=== PATIENT | female | born 1965 | race African-American/Black ===

== ENCOUNTER 2023-01-18 04:38 | Inpatient (IN) | payer BC ==
[2023-01-18 05:45] VITALS: BMI 39.7
[2023-01-18] MEDS ORDERED: Ondansetron ODT 4 MG TAB PO PRN (07:20)
[2023-01-18] MEDS ORDERED: Morphine 2 MG/ML VIAL SLOW IVP PRN ×2 (07:26→07:28)
[2023-01-18] MEDS ORDERED: HumaLOG 300 UNITS/3 ML VIAL SC PRN ×2 (07:26)
[2023-01-18] MEDS ORDERED: Dextrose 50% Abboject 50 ML SYRINGE SLOW IVP PRN (07:26)
[2023-01-18] MEDS ORDERED: Dextrose 5% in Water 1,000 ML IV PRN (07:26)
[2023-01-18] MEDS ORDERED: Lactated Ringer's 1,000 ML IV SCH (07:30)
[2023-01-18] MEDS ORDERED: hydrALAZINE 20 MG/ML VIAL SLOW IVP PRN (08:03)
[2023-01-18] MEDS: Famotidine/PF 20 mg/2ml Vial SLOW IVP SCH ×2 (08:53→20:39)
[2023-01-18] MEDS: Ondansetron PF 4 MG/2 ML Vial IVP PRN ×2 (10:34→16:48)
[2023-01-18] MEDS: Morphine 2 MG/ML VIAL SLOW IVP PRN ×3 (11:05→21:28)
[2023-01-18] MEDS: Lactated Ringer's 1,000 ML IV SCH ×2 (13:25→20:40)
[2023-01-18] MEDS ORDERED: HYDROmorphone 0.5 MG/0.5 ML SYRINGE SLOW IVP SCH (16:00)
[2023-01-19] MEDS: Lactated Ringer's 1,000 ML IV SCH (05:33)
[2023-01-19] MEDS: Morphine 2 MG/ML VIAL SLOW IVP PRN (05:33)
[2023-01-19 07:17] LABS: #Eosinphils 0.1 thou/uL (0.0-0.7); #Lymphocytes 1.8 thou/uL (1.20-3.40); #Monocytes 0.6 thou/uL (0.11-0.59); #Neutrophils 3.4 thou/uL (1.40-6.50); %Basophils 0.3 % (0.0-1.0); %Eosinophils 1.6 % (0.0-10.0); %Lymphocytes 30.2 % (21.0-51.0); %Monocytes 10.6 % (0.0-10.0); %Neutrophils 57.4 % (42.0-75.0); Hemoglobin 12.5 g/dL (12.0-16.0); Mean Corpuscular Hemoglobin 31.8 pg (27.0-31.0); Mean Corpuscular Volume 99.3 fl (78.0-98.0); Mean Platelet Volume 9.1 fL (7.4-10.4); Platelet Count 203 10x3/uL (130-400); Red Blood Cell (RBC) Count 3.93 mill/uL (4.20-5.40)
[2023-01-19 07:33] LABS: ALT (SGPT) 15 U/L (8-55); AST (SGOT) 15 U/L (5-34); Albumin 3.4 g/dL (3.5-5.0); Alkaline Phosphatase 60 U/L (40-110); Anion Gap 11 mmol/L (10-20); BUN (Urea Nitrogen) 9 mg/dL (9.8-20.1); Bilirubin, Total 0.7 mg/dL (0.2-1.2); Calc. Creatinine Clearance 121 mL/min (70-130); Calcium 8.7 mg/dL (7.8-10.44); Carbon Dioxide 27 mmol/L (22-29); Chloride 104 mmol/L (98-107); Estimated GFR 81; Globulin 3.2 g/dL (2.4-3.5); Glucose 112 mg/dL (70-105); Hemoglobin A1c 6.7 % (4.0-6.0); Magnesium 1.7 mg/dL (1.6-2.6); Potassium 3.7 mmol/L (3.5-5.1); Protein, Total 6.6 g/dL (6.0-8.3); Sodium 138 mmol/L (136-145)
[2023-01-19] MEDS ORDERED: Magnesium 2 GM/50 ML(in water) 2 GM in Premix Bag 1 BAG IVPB SCH (08:30)
[2023-01-19] MEDS ORDERED: Famotidine 20 MG TAB PO SCH (11:30)
[2023-01-19] MEDS: metFORMIN 500 MG TAB PO SCH (18:34)
[2023-01-19] MEDS: Famotidine/PF 20 mg/2ml Vial SLOW IVP SCH (18:41)
[2023-01-19] MEDS: Famotidine 20 MG TAB PO SCH (19:42)
[2023-01-19] MEDS ORDERED: Atorvastatin Calcium 20 MG TAB PO SCH (21:00)
[2023-01-20 08:00] LABS: Anion Gap 12 mmol/L (10-20); BUN (Urea Nitrogen) 8 mg/dL (9.8-20.1); Calc. Creatinine Clearance 116 mL/min (70-130); Calcium 9.4 mg/dL (7.8-10.44); Carbon Dioxide 29 mmol/L (22-29); Chloride 102 mmol/L (98-107); Estimated GFR 76; Glucose 133 mg/dL (70-105); Potassium 4.1 mmol/L (3.5-5.1); Sodium 139 mmol/L (136-145)
[2023-01-20] MEDS: Famotidine 20 MG TAB PO SCH (08:49)
[2023-01-20] MEDS: metFORMIN 500 MG TAB PO SCH (08:49)
[2023-01-20] MEDS ORDERED: Amlodipine 5 mg/Benazepril 20 mg CAP PO SCH (09:00)
[2023-01-20] MEDS ORDERED: Aspirin Chewable 81 MG TAB PO SCH (09:00)
[2023-01-20] MEDS ORDERED: Senokot S 8.6-50 MG TAB PO SCH (09:00)
[2023-01-20] MEDS ORDERED: Polyethylene Glycol 3350 17 GM Packet PO SCH (09:00)
[2023-01-20 14:53] VITALS: BP 138/91; TEMP 98.5
== END 2023-01-20 13:13 | disposition home or self-care (01) | DRG 390 ==
LOC: T4-B 05:35 → OBSVTOIN 07:29
PROVIDERS: ADMIT Hospitalist; ATTEND Hospitalist
PROC: 0D9670Z Drainage of Stomach with Drainage Device, Via Natural or Artificial Opening (ICD-10-PCS; principal; 2023-01-18)
DX: K56.51 Intestinal adhesions [bands], with partial obstruction (principal); I10 Essential (primary) hypertension; E78.5 Hyperlipidemia, unspecified; Z90.49 Acquired absence of other specified parts of digestive tract; Z90.710 Acquired absence of both cervix and uterus; Z79.899 Other long term (current) drug therapy; Z79.82 Long term (current) use of aspirin; Z79.84 Long term (current) use of oral hypoglycemic drugs
CPT/HCPCS: 36415; 36416; 74018; 74019; 74250; 80048; 80053; 83036; 83735; 85025; J1170; J1650; J2272; J2405; J3475; J7120; S0028

== ENCOUNTER 2023-09-20 09:11 | Outpatient (CLI) | payer BC ==
[2023-09-20] MEDS ORDERED: Iopamidol-370 76% 500 ML MDV (1 ML CHARGE) ONE (14:22)
== END 2023-09-20 09:12 | disposition home or self-care (01) ==
LOC: BICCT 09:11
PROVIDERS: ATTEND Internal Medicine Gastroenterology
DX: K56.600 Partial intestinal obstruction, unspecified as to cause (principal); Z12.11 Encounter for screening for malignant neoplasm of colon
CPT/HCPCS: 74178; 82565; Q9967

== ENCOUNTER 2023-09-20 09:27 | Outpatient (CLI) | payer BC | END 2023-09-20 09:28 | disposition home or self-care (01) | LOC: BICULT 09:27 | PROVIDERS: ATTEND Family Medicine | DX: E04.9 Nontoxic goiter, unspecified (principal) | CPT/HCPCS: 76536 ==